=== PATIENT | female | born 1955 | race Caucasian/White ===

== ENCOUNTER 2019-11-15 06:54 | Day surgery (SDC) | payer MEDICARE, BC ==
[2019-11-15] MEDS ORDERED: Propofol 200 MG/20 ML SDV IV ONE (06:55)
[2019-11-15] MEDS ORDERED: Sodium Chloride 0.9% 10 ML Syringe FLUSH PRN (07:15)
[2019-11-15] MEDS ORDERED: Lactated Ringers 1,000 ML IV SCH (07:15)
--- NOTE | 2019-11-15 08:54 | PCM.OPNOTE ---
- General Post-Op/Procedure Note Date of Surgery/Procedure: 11/15/19 Operative Procedure(s): c scope with biopsy Findings: ascending colon polyps x2 Pre Op Diagnosis: screening Post-Op Diagnosis: ascending colon polyps x2 Anesthesia Technique: DOM Primary Surgeon: Joe Nina Anesthesia Provider: Cory Schmid Pathology: ascending colon polyps x2 Complications: None Condition: Good Free Text/Narrative:: see dictation
--- NOTE | 2019-11-15 12:04 | OR ---
DATE OF OPERATION: 11/15/2019 SURGEON: Joe Nina MD PROCEDURE PERFORMED: Colonoscopy with cold forceps biopsy. PREOPERATIVE DIAGNOSIS: Need for colon cancer screening. POSTOPERATIVE DIAGNOSIS: Ascending colon polyps x2. INDICATIONS FOR PROCEDURE: This is a 64-year-old white female who presents for her initial screening colonoscopy. She is currently without complaints. DESCRIPTION OF OPERATION: After an excellent IV sedation was administered, digital rectal exam was performed. No marked abnormality was noted. The flexible colonoscope was inserted and advanced to the cecum. The prep was excellent. The following findings were noted: Ascending colon, 2 polyps were encountered within 2 cm of each other. They were biopsied with cold biopsy forceps and sent for permanent. Transverse colon was unremarkable. Descending colon was unremarkable. Sigmoid and rectum were unremarkable. Results will be sent to the patient via letter. The patient tolerated the procedure well. /[id number] MAYTE/BELLA
== END 2019-11-15 10:00 | disposition home or self-care (01) ==
LOC: FB.SDS 06:54
PROVIDERS: ATTEND Surgery
DX: Z12.11 Encounter for screening for malignant neoplasm of colon (principal); D12.2 Benign neoplasm of ascending colon; E11.9 Type 2 diabetes mellitus without complications; I10 Essential (primary) hypertension; E78.5 Hyperlipidemia, unspecified; Z79.899 Other long term (current) drug therapy; Z79.84 Long term (current) use of oral hypoglycemic drugs
CPT/HCPCS: 45380; 82962; 88305; J2704; J7120; 00812-QZ